=== PATIENT | female | born 2000 | race American Indian/Alaskan Native ===

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

== ENCOUNTER 2021-10-07 14:05 | Emergency (ER) | payer SELFPAY ==
--- NOTE | 2021-10-07 17:10 | Emergency Department Report ---
ED ENT HPI - General Chief complaint: Dental/Oral Stated complaint: LEFT SIDE FACIAL SWELLING/DENTAL PN Source: patient Mode of arrival: Ambulatory Limitations: No Limitations - History of Present Illness Initial comments: 21-year-old female presents to the ED with dental pain x2 days. Patient states that she did not have ENT dental insurance and unable to have tooth removed. Patient has mild facial swelling noted to the right jaw area. Patient states taking [id number] medication for pain without any relief. Patient states that she has multiple dental cavities . Patient is alert and oriented x3. No acute distress noted. Ill appearance noted. Denies any fever, drooling, able to open her mouth without any pain or discomfort. MD complaint: tooth pain Onset/Timin -: Gradual Severity scale (0 -10): 5 Quality: aching Consistency: intermittent Improves with: none Worsens with: none Context- Dental: history of dental caries, poor dental care Associated Symptoms: denies: fever, cough, gum swelling, pain with swallowing, sore throat, tinnitus, hearing loss, discharge from ear, rhinorrhea, other - Related Data Previous Rx's Medication Instructions Recorded Last Taken Type Ibuprofen [Motrin] 600 mg PO Q8H PRN #15 tablet 12/14/16 Unknown Rx cephALEXin [Keflex] 500 mg PO Q8HR #15 cap 12/14/16 Unknown Rx Acetaminophen/Codeine [Tylenol 1 tab PO Q6H PRN 3 Days #12 tab 10/07/21 Unknown Rx /Codeine # 3 tab] Naproxen [Naprosyn] 500 mg PO BID 15 Days #30 tablet 10/07/21 Unknown Rx Penicillin V Potassium 500 mg PO BID 10 Days #20 tab 10/07/21 Unknown Rx Allergies Allergy/AdvReac Type Severity Reaction Status Date / Time No Known Allergies Allergy Verified 10/07/21 17:01 ED Dental HPI - General Chief complaint: Dental/Oral Stated complaint: LEFT SIDE FACIAL SWELLING/DENTAL PN Source: patient Mode of arrival: Ambulatory Limitations: No Limitations - Related Data Previous Rx's Medication Instructions Recorded Last Taken Type Ibuprofen [Motrin] 600 mg PO Q8H PRN #15 tablet 12/14/16 Unknown Rx cephALEXin [Keflex] 500 mg PO Q8HR #15 cap 12/14/16 Unknown Rx Acetaminophen/Codeine [Tylenol 1 tab PO Q6H PRN 3 Days #12 tab 10/07/21 Unknown Rx /Codeine # 3 tab] Naproxen [Naprosyn] 500 mg PO BID 15 Days #30 tablet 10/07/21 Unknown Rx Penicillin V Potassium 500 mg PO BID 10 Days #20 tab 10/07/21 Unknown Rx Allergies Allergy/AdvReac Type Severity Reaction Status Date / Time No Known Allergies Allergy Verified 10/07/21 17:01 ED Review of Systems ROS: Stated complaint: LEFT SIDE FACIAL SWELLING/DENTAL PN Other details as noted in HPI Constitutional: denies: chills, fever Eyes: denies: eye pain, eye discharge, vision change ENT: dental pain. denies: ear pain, throat pain Respiratory: denies: cough, shortness of breath, wheezing Cardiovascular: denies: chest pain, palpitations Endocrine: no symptoms reported Gastrointestinal: denies: abdominal pain, nausea, diarrhea Genitourinary: denies: urgency, dysuria, discharge Musculoskeletal: denies: back pain, joint swelling, arthralgia Skin: denies: rash, lesions Neurological: denies: headache, weakness, paresthesias Psychiatric: denies: anxiety, depression Hematological/Lymphatic: denies: easy bleeding, easy bruising ED Past Medical Hx - Surgical History Additional Surgical History: hernia - Social History Smoking Status: Never Smoker Substance Use Type: None - Medications Home Medications: Home Medications Medication Instructions Recorded Confirmed Last Taken Type Ibuprofen [Motrin] 600 mg PO Q8H PRN #15 tablet 12/14/16 10/07/21 Unknown Rx cephALEXin [Keflex] 500 mg PO Q8HR #15 cap 12/14/16 10/07/21 Unknown Rx Acetaminophen/Codeine [Tylenol 1 tab PO Q6H PRN 3 Days #12 tab 10/07/21 Unknown Rx /Codeine # 3 tab] Naproxen [Naprosyn] 500 mg PO BID 15 Days #30 tablet 10/07/21 Unknown Rx Penicillin V Potassium 500 mg PO BID 10 Days #20 tab 10/07/21 Unknown Rx ED Physical Exam - General Limitations: No Limitations General appearance: alert, in no apparent distress - Head Head exam: Present: atraumatic, normocephalic - Eye Eye exam: Present: normal appearance - ENT ENT exam: Present: mucous membranes moist - Neck Neck exam: Present: normal inspection - Respiratory Respiratory exam: Present: normal lung sounds bilaterally. Absent: respiratory distress - Cardiovascular Cardiovascular Exam: Present: regular rate, normal rhythm. Absent: systolic murmur, diastolic murmur, rubs, gallop - GI/Abdominal GI/Abdominal exam: Present: soft, normal bowel sounds - Extremities Exam Extremities exam: Present: normal inspection - Back Exam Back exam: Present: normal inspection - Neurological Exam Neurological exam: Present: alert, oriented X3 - Psychiatric Psychiatric exam: Present: normal affect, normal mood - Skin Skin exam: Present: warm, dry, intact, normal color. Absent: rash ED Course Vital Signs 10/07/21 10/07/21 10/07/21 16:40 16:55 17:45 Temperature 98.2 F 98.4 F 98.1 F Pulse Rate 64 77 77 Respiratory 18 20 20 Rate Blood Pressure 99/67 124/79 124/75 [Right] O2 Sat by Pulse 100 100 100 Oximetry ED Medical Decision Making - Medical Decision Making 21-year-old female presents to the ED with dental pain x2 days. Patient states that she did not have ENT dental insurance and unable to have tooth removed. Patient has mild facial swelling noted to the right jaw area. Patient states taking [id number] medication for pain without any relief. Patient states that she has multiple dental cavities . Patient is alert and oriented x3. No acute distress noted. No Ill appearance noted. Denies any fever, drooling, able to open her mouth without any pain or discomfort. Physical examination patient has multiple dental cavities noted to multiple teeth. Explained to patient that she needs to follow-up with dentist as soon as possible. No trismus noted on examination. Uvula midline. Rechecked the patient is resting quietly quietly and comfortable and feeling better. I discussed the results of diagnostic study, my clinical impression and the plan for further treatment with the patient. Patient agrees with plan and discharge at this present time. All question addressed. I have given the patient instruction regarding a diagnosis ,expectation ,follow- up and return precaution. I explained to the patient that emergent condition may arise and to return to the ED for new worsen and any new persisting condition. I have explained the importance of following up with the primary care physician or referral physician listed below has instructed. The patient verbalized understanding of discharge instruction. Critical care attestation.: If time is entered above; I have spent that time in minutes in the direct care of this critically ill patient, excluding procedure time. ED Disposition Clinical Impression: Pain due to dental caries Disposition: HOME / SELF CARE / HOMELESS Is pt being admited?: No Does the pt Need Aspirin: No Condition: Stable Instructions: Dental Abscess, [id number], How to Use Cold Therapy, Preventive Dental Care, Adult Additional Instructions: Take medication as prescribed Return to the ED for any worsening symptom Prescriptions: Naproxen [Naprosyn] 500 mg PO BID 15 Days #30 tablet Penicillin V Potassium 500 mg PO BID 10 Days #20 tab Acetaminophen/Codeine [Tylenol /Codeine # 3 tab] 1 tab PO Q6H PRN 3 Days #12 tab PRN Reason: Pain, Moderate (4-6) Referrals: PRIMARY CARE, [Primary Care Provider] - 3-5 Days [facility] [Outside] - 3-5 Days Forms: Work/School Release Form(ED)
[2021-10-07 17:46] VITALS: BP 124/75
== END 2021-10-07 17:45 | disposition home or self-care (01) ==
LOC: ED 14:05
DX: K02.9 Dental caries, unspecified (principal); Z98.890 Other specified postprocedural states
CPT/HCPCS: 99282